=== PATIENT | male | born 1985 | race Hispanic/Latino ===

== ENCOUNTER 2020-05-20 20:35 | Emergency (ER) | payer BC, SELFPAY ==
--- NOTE | 2020-05-20 20:42 | DI.RAD.S_ITS ---
PROCEDURE: XR CHEST 1V INDICATIONS: chest pain TECHNIQUE: One view of the chest was acquired. COMPARISON: None. FINDINGS: Surgical changes and devices: None. Lungs and pleura: Lungs are clear. No pleural effusions or pneumothorax. Mediastinum: Mediastinal contours appear normal. Heart size is normal. Bones and chest wall: No suspicious bony lesions. Overlying soft tissues appear unremarkable. IMPRESSION: No acute cardiopulmonary findings. Dictated by: Marlen Tinoco M.D. on 05/20/2020 at 21:18 Approved by: Marlen Tinoco M.D. on 05/20/2020 at 21:18
[2020-05-20 20:43] VITALS: BP 173/102; PULSE 110; RESP 18; TEMP 37; O2SAT 97; BMI 34.7
[2020-05-20 21:20] LABS: Add Manual Diff / Slide Review NO; Basophils Absolute Auto 100 /uL (0-100); Eosinophils Absolute Auto 200 /uL (0-450); Eosinophils Percent Auto 2.5 % (2-4); Hematocrit 44.7 % (41-53); Hemoglobin 15.7 g/dL (13.5-17.5); Lymphocytes Absolute Auto 3100 /uL (1100-4500); Lymphocytes Percent Auto 32.2 % (25-40); Mean Corpuscular HGB Conc 35.1 % (30-36); Mean Corpuscular Volume 88.4 fL (80-100); Monocytes Absolute Auto 800 /uL (0-900); Monocytes Percent Auto 8.3 % (3-14); Neutrophils Absolute Auto 5400 /uL (1500-7000); Platelet Count 219 X10^3/uL (150-400); Red Blood Cell Count 5.06 X10^6/uL (4.5-5.9); Red Cell Distribution Width 12.4 % (11.6-14.8); White Blood Cell Count 9.7 X10^3/uL (4.5-11.0)
[2020-05-20 21:24] LABS: Prothrombin Time 11.1 SECONDS (10.1-12.7)
[2020-05-20 21:27] LABS: PTT Partial Thromboplastin Tim 30 SECONDS (26.4-36.2)
[2020-05-20 21:32] LABS: Alanine Aminotransferase 200 IU/L (<50); Albumin 4.1 g/dL (3.5-5.0); Albumin Globulin Ratio 1.1 (1.0-2.8); Alkaline Phosphatase 136 U/L (38-126); Aspartate Aminotransferase 152 IU/L (17-59); BUN Creatinine Ratio 22.1 (6-22); Bilirubin Total 1.1 mg/dL (0.2-1.3); Blood Urea Nitrogen 17 mg/dL (9-20); Calcium 9.2 mg/dL (8.4-10.2); Carbon Dioxide 29 mmol/L (22-32); Chloride 102 mmol/L (98-107); Creatine Kinase 981 U/L (55-170); Estimated Glomerular Filt Rate > 60.0 mL/min (>60); Globulin 3.9 g/dL (1.7-4.1); Glucose 165 mg/dL (70-100); HEMOLYSIS 34 (0-50); Lipase 117 U/L (23-300); Potassium 3.7 mmol/L (3.4-5.1); Sodium 134 mmol/L (137-145)
[2020-05-20 21:43] LABS: Troponin I < 0.012 ng/mL (0.01-0.034)
--- NOTE | 2020-05-20 21:45 | ED_ITS ---
HPI - Chest Pain General Chief Complaint: Chest Pain Stated Complaint: chest pain Time Seen by Provider: 05/20/20 20:48 Source: patient Mode of arrival: Family Vehicle Limitations: no limitations History of Present Illness HPI narrative: 34 male former smoker with no medical history presents with a chief complaint of episodes of mid chest pain off and on over the past few weeks with radiation to his back. He states on multiple occasions it seemed to be related to eating, he is also provoked by laying flat. The pain is achy in nature and has been off and on for the past few weeks. He denies associated symptoms such as dizziness, weakness or lightheadedness. He denies nausea, vomiting or diarrhea. He denies any fever or chills. He denies any change in his symptoms with exertion. MD complaint: chest pain Onset (ago): week(s) Duration: intermittent Onset: after eating Pain location: epigastric Severity: moderate Quality: aching Pain radiation: back Exacerbating factors: eating and supine Treatments prior to arrival chest pain: none Related Data Home Medications Medication Instructions Recorded Confirmed No Known Home Medications 05/20/20 05/20/20 Allergies Allergy/AdvReac Type Severity Reaction Status Date / Time No Known Drug Allergies Allergy Verified 05/20/20 20:48 Review of Systems Constitutional Constitutional: Denies chills, Denies fatigue, Denies fever(s), Denies frequent falls, Denies lethargy and Denies weakness Eyes Eyes: Denies change in vision, Denies eye discharge, Denies irritation and Denies loss of vision ENT Ears, Nose, Mouth, and Throat: Denies change in voice, Denies dizziness, Denies neck pain, Denies sore throat and Denies throat swelling Cardiovascular Cardiovascular: Reports chest pain, Denies irregular heart rhythm, Denies lightheadedness, Denies palpitations, Denies dyspnea, Denies dyspnea on exertion and Denies orthopnea Respiratory Respiratory: Denies cough, Denies dyspnea, Denies dyspnea on exertion and Denies wheezing Gastrointestinal Gastrointestinal: Reports abdominal pain, Denies change in bowel habits, Denies diarrhea, Denies nausea and Denies vomiting Musculoskeletal Musculoskeletal: Denies neck pain and Denies numbness Integumentary/Breasts Skin/Breast: Denies pruritus, Denies erythema, Denies rash and Denies wounds Neurologic Neurologic: Denies behavioral changes, Denies confusion, Denies dizziness, Denies frequent falls, Denies loss of vision, Denies numbness and Denies weakness Psychiatric Psychiatric: Denies anxiety, Denies behavioral changes, Denies confusion, Denies depression, Denies homicidal ideation and Denies suicidal ideation Endocrine Endocrine: Denies fatigue, Denies flushing and Denies palpitations Hematologic/Lymphatic Hematologic/Lymphatic: Denies easy bruising Allergic/Immunologic Allergic/Immunologic: Denies urticaria, Denies throat swelling and Denies wheezing Patient History Social History Smoking Status: Former smoker Smoking Status: Former smoker alcohol intake frequency: 3 or more drinks per day Alcohol type: beer and hard liquor Substance Use Type: does not use Exam Narrative Exam Narrative: GENERAL: [34] year old patient appears stated age. Well- nourished, well-developed patient, in mild distress. HEAD: Atraumatic. Normocephalic. EYES: Pupils equal round and reactive. Extraocular motions intact. No scleral icterus. No injection or drainage. ENT: Nose without bleeding, purulent drainage. Throat without erythema, tonsillar hypertrophy or exudate. Airway patent. NECK: Trachea midline. Non tender CARDIOVASCULAR: Regular rate and rhythm without murmurs, gallops, or rubs. RESPIRATORY: Clear to auscultation. Breath sounds equal bilaterally. No wheezes, rales, or rhonchi. GASTROINTESTINAL: Abdomen soft, non-tender, nondistended. EXTREMITIES: No edema or joint tenderness. BACK: Nontender without deformity or crepitance. No flank tenderness. NEURO: AOx3. SKIN: No rash or erythema of visible areas Initial Vital Signs Initial Vital Signs: Vital Signs Temperature 98.6 F 05/20/20 20:43 Pulse Rate 110 H 05/20/20 20:43 Respiratory Rate 18 05/20/20 20:43 Blood Pressure 173/102 H 05/20/20 20:43 Pulse Oximetry 97 05/20/20 20:43 Course Orders Ordered: ED Orders 05/20/20 21:53 US abdomen limited Stat Vital Signs Vital signs: Vital Signs - 8 hr 05/20/20 23:00 05/20/20 23:30 05/21/20 00:05 Pulse Rate 87 85 88 Respiratory Rate 13 15 18 Blood Pressure 119/81 120/73 120/73 Pulse Oximetry 95 94 97 MDM - Chest Pain Lab Data Result diagrams: 05/20/20 21:11 05/20/20 21:11 Labs: Lab Results 05/20/20 05/20/20 05/20/20 Range/Units 21:11 21:11 21:11 WBC 9.7 (4.5-11.0) X10^3/uL RBC 5.06 (4.5-5.9) X10^6/uL Hgb 15.7 (13.5-17.5) g/dL Hct 44.7 (41-53) % MCV 88.4 (80-100) fL MCH 31.0 (26-34) PG MCHC 35.1 (30-36) % RDW 12.4 (11.6-14.8) % Plt Count 219 (150-400) X10^3/uL Neut % (Auto) 56.0 (50-75) % Lymph % (Auto) 32.2 (25-40) % [place] % (Auto) 8.3 (3-14) % Eos % (Auto) 2.5 (2-4) % Baso % (Auto) 1.0 (0-2) % Neut # (Auto) 5400 (0951-2340) /uL Lymph # (Auto) 3100 (3343-9491) /uL [place] # (Auto) 800 (0-900) /uL Eos # (Auto) 200 (0-450) /uL Baso # (Auto) 100 (0-100) /uL PT 11.1 (10.1-12.7) SECONDS INR 1.0 (0.9-1.3) APTT 30 (26.4-36.2) SECONDS D-Dimer (<230) ng/mL Sodium 134 L (137-145) mmol/L Potassium 3.7 (3.4-5.1) mmol/L Chloride 102 (98-107) mmol/L Carbon Dioxide 29 (22-32) mmol/L BUN 17 (9-20) mg/dL Creatinine 0.77 (0.66-1.25) mg/dL Estimated GFR > 60.0 (>60) mL/min BUN/Creatinine Ratio 22.1 H (6-22) Glucose 165 H (70-100) mg/dL Calcium 9.2 (8.4-10.2) mg/dL Total Bilirubin 1.1 (0.2-1.3) mg/dL AST 152 H (17-59) IU/L ALT 200 H (<50) IU/L Alkaline Phosphatase 136 H (38-126) U/L Total Creatine Kinase 981 H (55-170) U/L CK-MB (CK-2) 3.46 H (<2.37) ng/mL CK-MB (CK-2) Rel Index 0.4 L (1.5-5.0) % Troponin I < 0.012 (0.01-0.034) ng/mL Total Protein 8.0 (6.3-8.2) g/dL Albumin 4.1 (3.5-5.0) g/dL Globulin 3.9 (1.7-4.1) g/dL Albumin/Globulin Ratio 1.1 (1.0-2.8) Lipase 117 (23-300) U/L 12/21/20 Range/Units 21:11 WBC (4.5-11.0) X10^3/uL RBC (4.5-5.9) X10^6/uL Hgb (13.5-17.5) g/dL Hct (41-53) % MCV (80-100) fL MCH (26-34) PG MCHC (30-36) % RDW (11.6-14.8) % Plt Count (150-400) X10^3/uL Neut % (Auto) (50-75) % Lymph % (Auto) (25-40) % [place] % (Auto) (3-14) % Eos % (Auto) (2-4) % Baso % (Auto) (0-2) % Neut # (Auto) (7457-9140) /uL Lymph # (Auto) (7642-3288) /uL [place] # (Auto) (0-900) /uL Eos # (Auto) (0-450) /uL Baso # (Auto) (0-100) /uL PT (10.1-12.7) SECONDS INR (0.9-1.3) APTT (26.4-36.2) SECONDS D-Dimer < 200 (<230) ng/mL Sodium (137-145) mmol/L Potassium (3.4-5.1) mmol/L Chloride (98-107) mmol/L Carbon Dioxide (22-32) mmol/L BUN (9-20) mg/dL Creatinine (0.66-1.25) mg/dL Estimated GFR (>60) mL/min BUN/Creatinine Ratio (6-22) Glucose (70-100) mg/dL Calcium (8.4-10.2) mg/dL Total Bilirubin (0.2-1.3) mg/dL AST (17-59) IU/L ALT (<50) IU/L Alkaline Phosphatase (38-126) U/L Total Creatine Kinase (55-170) U/L CK-MB (CK-2) (<2.37) ng/mL CK-MB (CK-2) Rel Index (1.5-5.0) % Troponin I (0.01-0.034) ng/mL Total Protein (6.3-8.2) g/dL Albumin (3.5-5.0) g/dL Globulin (1.7-4.1) g/dL Albumin/Globulin Ratio (1.0-2.8) Lipase (23-300) U/L Imaging Data US - abdomen: Radiologist's Impression: No gallstones, gallbladder thickening or pericholecystic fluid MDM Narrative Medical decision making narrative: Multiple causes of chest pain considered including NM, PE, pneumothorax, pneumonia, aortic dissection, and pleurisy. Patient reports no radiation, no diaphoresis, no provocation with exertion, and no vomiting Patient's symptoms improved over duration of stay with above-stated therapies. Findings and discharge diagnosis discussed with patient/family followed by verbalization of understanding Return precautions discussed with patient/family whom verbalize understanding. Discharge Plan Departure Patient Disposition: Home Clinical Impression: Atypical chest pain Instructions: DI for Atypical Chest Pain Activity Restrictions/Additional Instructions: *You have been diagnosed with [atypical chest pain. EKG, labs and exam would suggest this is not classic cardiac disease. Furthermore, the ultrasound of your gallbladder was also reassuring.] *What to do: *Avoid fatty foods, spicy foods, alcohol, nicotine, and significant caffeine *Follow up with your primary care provider in 2-3 days, call for an appointment. Let them know you were seen in the Emergency Department and that we ask that you be seen in follow up *Return to ER if you should have any new, worsening or concerning symptoms Prescriptions: No Action No Known Home Medications RF: 0 Referrals: [facility] [Outside]
[2020-05-20 21:47] LABS: CKMB % Relative Index 0.4 % (1.5-5.0); Creatine Kinase MB 3.46 ng/mL (<2.37)
--- NOTE | 2020-05-20 21:53 | DI.US.S_ITS ---
PROCEDURE: US ABDOMEN LIMITED INDICATIONS: RIGHT UPPER QUADRANT PAIN TECHNIQUE: Real-time focused scanning was performed of the abdomen, with image documentation. COMPARISON: None. FINDINGS: Liver is normal in size. Liver is diffusely echogenic. No focal hepatic mass lesions. Gallbladder is contracted which limits diagnostic sensitivity this study. Gallbladder wall is thickened to 6.2 millimeters which could be due to contraction or inflammation. No definite gallstones identified, however gallstones cannot be excluded due to gallbladder contraction. No pericholecystic fluid. No sonographic Bahena sign. The biliary tree is nondilated. Common bile duct measures 3.4 millimeters. IMPRESSION: 1. Gallbladder contracted which limits diagnostic sensitivity of the study. No definite evidence of cholelithiasis or cholecystitis, however gallbladder disease is not excluded by this study. If there is continued clinical concern for cholecystitis, a nuclear medicine HIDA scan should be considered for further evaluation. 2. Echogenic liver. Finding typically represents fatty infiltration; however, finding is nonspecific and correlation with clinical and laboratory findings is recommended to exclude other etiologies including hepatic cirrhosis. Dictated by: Pamela Rodriguez MD, PhD on 05/21/2020 at 7:38 Approved by: Pamela Rodriguez MD, PhD on 05/21/2020 at 7:40
[2020-05-20 21:54] VITALS: PULSE 89; RESP 14; O2SAT 97
[2020-05-20 21:56] LABS: D Dimer < 200 ng/mL (<230)
[2020-05-20 22:00] VITALS: BP 117/66; PULSE 86; RESP 12; O2SAT 96
[2020-05-20 22:30] VITALS: BP 120/68; PULSE 91; RESP 18; O2SAT 96
[2020-05-20 23:00] VITALS: BP 119/81; PULSE 87; RESP 13; O2SAT 95
[2020-05-20 23:30] VITALS: BP 120/73; PULSE 85; RESP 15; O2SAT 94
[2020-05-21 00:05] VITALS: BP 120/73; PULSE 88; RESP 18; O2SAT 97
== END 2020-05-21 00:07 | disposition home or self-care (01) ==
PROVIDERS: Emergency Provider Emergency Medicine
DX: R07.89 Other chest pain (principal); R10.11 Right upper quadrant pain
CPT/HCPCS: 36415; 71045; 76705; 80053; 82550; 82553; 83690; 84484; 85025; 85379; 85610; 85730; 93005; 99284

== ENCOUNTER 2020-11-17 08:34 | Inpatient (IN) | payer OTHER, SELFPAY ==
[2020-11-17 08:58] VITALS: BP 153/97; PULSE 125; RESP 16; TEMP 37.3; O2SAT 99; BMI 33.0
--- NOTE | 2020-11-17 09:31 | ED_ITS ---
HPI - Abdominal Pain General Chief Complaint: Abdominal Pain Stated Complaint: SEVERE ABD PAIN Time Seen by Provider: 11/17/20 09:27 Source: patient Mode of arrival: Ambulatory Limitations: no limitations History of Present Illness HPI narrative: This is a 35-year-old male comes emergency department with complaint of left-sided abdominal pain that started last night. Patient states it radiates up towards the left side of his chest. No fevers or chills. No nausea or vomiting. Denies any shortness of breath. Patient states pain is worse with movement. He denies any urinary symptoms. No frequency, discharge or difficulty with urination. Patient states he has not had a bowel movement about 24 hours. He states he is only passing a small amount of gas. He states he takes medication for anxiety but denies any other regular medications. No prior surgeries. Patient denies any allergies to medication. Positive for tobacco. Patient drinks approximately 12 alcoholic drinks nightly. No illicit. He states pain has been fairly constant. It has not resolved. He had difficulty sleeping which is why he Related Data Previous Rx's Medication Instructions Recorded hydroxyzine HCl 25 mg tablet 25 mg PO TID PRN #30 tab 06/12/20 Allergies Allergy/AdvReac Type Severity Reaction Status Date / Time No Known Drug Allergies Allergy Verified 06/12/20 15:42 Patient History Medical History (Updated 11/17/20 @ 15:21 by Dante Betancourt MD) Alcoholic hepatitis Alcoholism Anxiety Nonalcoholic fatty liver disease Surgical History (Updated 11/17/20 @ 17:02 by Dante Betancourt MD) No significant past surgical history Family History (Updated 11/17/20 @ 15:22 by Dante Betancourt MD) Mother CVA (cerebral vascular accident) Social History Smoking Status: Former smoker alcohol intake: current Smoking Status: Former smoker alcohol intake frequency: 3 or more drinks per day Alcohol type: beer and hard liquor Substance Use Type: does not use Exam Narrative Exam Narrative: GENERAL: Alert and oriented x three, obese male in moderate distress. Patient is not diaphoretic. HEENT: Head normocephalic, atraumatic, EOMI, pupils reactive, face symmetric, moist mucous membranes NECK: Supple, full range of motion CARDIOVASCULAR: Regular rate and rhythm without murmurs, rubs or gallops. RESPIRATORY: Breath sounds equal bilaterally, no wheezes rales or rhonchi. ABDOMEN: Soft, left upper quadrant epigastric tenderness. Normoactive bowel sounds all 4 quadrants. No guarding or rebound, rigidity, no mass, no bruit or pulsatile mass. : No CVA tenderness BACK: No cervical, thoracic or lumbar vertebral point tenderness. Patient has normal range of motion. EXTREMITIES: Normal range of motion, no clubbing or edema. Neurovascularly intact NEUROLOGICAL: Cranial nerves II through XII grossly intact. Moving all extremities SKIN: Warm, dry, no petechiae, no rashes or lesions. Initial Vital Signs Initial Vital Signs: Vital Signs Temperature 99.1 F 11/17/20 08:58 Pulse Rate 125 H 11/17/20 08:58 Respiratory Rate 16 11/17/20 08:58 Blood Pressure 153/97 H 11/17/20 08:58 Pulse Oximetry 99 11/17/20 08:58 Course Orders Ordered: ED Orders 11/17/20 11:17 Urine Microscopic Stat Dextrose (Dextrose 50 % In Water 25 Gm/50 Ml Syringe) 25 gm IV PRN PRN PRN Reason: Hypoglycemia Enoxaparin Sodium (Enoxaparin 40 Mg/0.4 Ml Syringe) 40 mg SUBCUT DAILY LOUIE Famotidine (Famotidine 20 Mg/2 Ml Vial) 20 mg IV BID LOUIE Hydromorphone HCl (Hydromorphone 1 Mg Inj) 1 mg IV Q3H PRN PRN Reason: Pain, Severe (7-10) Last Admin: 11/17/20 13:55 Dose: 1 mg Documented by: MARYELLEN Hydromorphone HCl (Hydromorphone 0.5 Mg Inj) 0.5 mg IV Q3H PRN PRN Reason: Pain, Moderate (4-6) Last Admin: 11/17/20 18:24 Dose: 0.5 mg Documented by: OC Dextrose/Sodium Chloride (Dextrose 5%-0.9% Ns) 1,000 mls @ 130 mls/hr IV CONT LOUIE Last Admin: 11/17/20 13:55 Dose: 130 mls/hr Documented by: MARYELLEN Insulin Human Lispro (Insulin Lispro 100 Unit/Ml 3ml Vial) 0 unit SUBCUT ACHS LOUIE; Protocol Lorazepam (Lorazepam 2 Mg/Ml Inj) 0.5 mg IV Q2HR PRN PRN Reason: Anxiety Naloxone HCl (Naloxone 0.4 Mg/Ml Vial) 0.2 mg IV Q2MIN PRN PRN Reason: Opiate Reversal Ondansetron HCl (Ondansetron 4 Mg/2 Ml Inj) 4 mg IV Q8HR PRN PRN Reason: Nausea And Vomiting Discontinued Medications Sodium Chloride (Normal Saline 0.9%) 1,000 mls @ 1,000 mls/hr IV BOLUS ONE Stop: 11/17/20 10:39 Last Infusion: 11/17/20 11:18 Dose: 0 mls/hr Documented by: Admin: 11/17/20 10:12 Dose: 1,000 mls/hr Documented by: CTRGLORIA Ketorolac Tromethamine (Ketorolac 30 Mg/Ml Vial) 15 mg IV NOW ONE Stop: 11/17/20 09:41 Last Admin: 11/17/20 10:12 Dose: 15 mg Documented by: DENISE Reevaluation(s) Reevaluation #1: Patient feeling better after pain meds. Cholesterol panel pending. Time: 10:59 Consultations Consultation #1: Dr. Betancourt accepts for admission. Time: 11:05 Vital Signs Vital signs: Vital Signs - 8 hr 11/17/20 08:58 Temperature 99.1 F Pulse Rate 125 H Respiratory Rate 16 Blood Pressure 153/97 H Pulse Oximetry 99 MDM - Abdominal Pain Lab Data Attestation: I reviewed the patient's lab results. Result diagrams: 11/17/20 09:50 11/17/20 09:50 Labs: Lab Results 11/17/20 11/17/20 11/17/20 Range/Units 09:50 09:50 09:50 WBC 13.0 H (4.5-11.0) X10^3/uL RBC 5.56 (4.5-5.9) X10^6/uL Hgb 17.0 (13.5-17.5) g/dL Hct 49.6 (41-53) % MCV 89.2 (80-100) fL MCH 30.5 (26-34) PG MCHC 34.2 (30-36) % RDW 13.1 (11.6-14.8) % Plt Count 229 (150-400) X10^3/uL Neut % (Auto) 78.6 H (50-75) % Lymph % (Auto) 11.5 L (25-40) % [place] % (Auto) 9.3 (3-14) % Eos % (Auto) 0.1 L (2-4) % Baso % (Auto) 0.5 (0-2) % Neut # (Auto) 30589 H (8152-4480) /uL Lymph # (Auto) 1500 (0196-8014) /uL [place] # (Auto) 1200 H (0-900) /uL Eos # (Auto) 0 (0-450) /uL Baso # (Auto) 100 (0-100) /uL Sodium 133 L (137-145) mmol/L Potassium 4.5 (3.4-5.1) mmol/L Chloride 97 L (98-107) mmol/L Carbon Dioxide 14 L (22-32) mmol/L BUN 10 (9-20) mg/dL Creatinine 0.73 (0.66-1.25) mg/dL Estimated GFR > 60.0 (>60) mL/min BUN/Creatinine Ratio 13.7 (6-22) Glucose 342 H (70-100) mg/dL Lactate (0.7-2.1) mmol/L Calcium 8.7 (8.4-10.2) mg/dL Total Bilirubin 2.7 H (0.2-1.3) mg/dL AST 78 H (17-59) IU/L ALT 193 H (<50) IU/L Alkaline Phosphatase 148 H (38-126) U/L Total Creatine Kinase 391 H (55-170) U/L CK-MB (CK-2) 0.97 (<2.37) ng/mL CK-MB (CK-2) Rel Index 0.2 L (1.5-5.0) % Troponin I 0.017 (0.01-0.034) ng/mL Total Protein 9.8 H* (6.3-8.2) g/dL Albumin 4.7 (3.5-5.0) g/dL Globulin 5.1 H (1.7-4.1) g/dL Albumin/Globulin Ratio 0.9 L (1.0-2.8) Triglycerides (35-150) mg/dL Cholesterol (140-199) mg/dL LDL Cholesterol, Calc HDL Cholesterol (40-60) mg/dL Lipase 1618 H (23-300) U/L Urine RBC (0-5/HPF) Urine WBC (0-5/HPF) Ur Squamous Epith Cells (0-5/HPF) Urine Bacteria (None) Ur Culture Indicated? Ethyl Alcohol ( - 10) mg/dL SARS-CoV-2 (PCR) (Negative) 11/17/20 11/17/20 11/17/20 Range/Units 09:50 09:50 09:50 WBC (4.5-11.0) X10^3/uL RBC (4.5-5.9) X10^6/uL Hgb (13.5-17.5) g/dL Hct (41-53) % MCV (80-100) fL MCH (26-34) PG MCHC (30-36) % RDW (11.6-14.8) % Plt Count (150-400) X10^3/uL Neut % (Auto) (50-75) % Lymph % (Auto) (25-40) % [place] % (Auto) (3-14) % Eos % (Auto) (2-4) % Baso % (Auto) (0-2) % Neut # (Auto) (8902-4329) /uL Lymph # (Auto) (4669-7745) /uL [place] # (Auto) (0-900) /uL Eos # (Auto) (0-450) /uL Baso # (Auto) (0-100) /uL Sodium (137-145) mmol/L Potassium (3.4-5.1) mmol/L Chloride (98-107) mmol/L Carbon Dioxide (22-32) mmol/L BUN (9-20) mg/dL Creatinine (0.66-1.25) mg/dL Estimated GFR (>60) mL/min BUN/Creatinine Ratio (6-22) Glucose (70-100) mg/dL Lactate 1.6 (0.7-2.1) mmol/L Calcium (8.4-10.2) mg/dL Total Bilirubin (0.2-1.3) mg/dL AST (17-59) IU/L ALT (<50) IU/L Alkaline Phosphatase (38-126) U/L Total Creatine Kinase (55-170) U/L CK-MB (CK-2) (<2.37) ng/mL CK-MB (CK-2) Rel Index (1.5-5.0) % Troponin I (0.01-0.034) ng/mL Total Protein (6.3-8.2) g/dL Albumin (3.5-5.0) g/dL Globulin (1.7-4.1) g/dL Albumin/Globulin Ratio (1.0-2.8) Triglycerides 3772 H (35-150) mg/dL Cholesterol 552 H (140-199) mg/dL LDL Cholesterol, Calc TNP HDL Cholesterol 32 L (40-60) mg/dL Lipase (23-300) U/L Urine RBC (0-5/HPF) Urine WBC (0-5/HPF) Ur Squamous Epith Cells (0-5/HPF) Urine Bacteria (None) Ur Culture Indicated? Ethyl Alcohol < 10 ( - 10) mg/dL SARS-CoV-2 (PCR) (Negative) 11/17/20 11/17/20 Range/Units 10:30 11:17 WBC (4.5-11.0) X10^3/uL RBC (4.5-5.9) X10^6/uL Hgb (13.5-17.5) g/dL Hct (41-53) % MCV (80-100) fL MCH (26-34) PG MCHC (30-36) % RDW (11.6-14.8) % Plt Count (150-400) X10^3/uL Neut % (Auto) (50-75) % Lymph % (Auto) (25-40) % [place] % (Auto) (3-14) % Eos % (Auto) (2-4) % Baso % (Auto) (0-2) % Neut # (Auto) (9634-9819) /uL Lymph # (Auto) (5270-9302) /uL [place] # (Auto) (0-900) /uL Eos # (Auto) (0-450) /uL Baso # (Auto) (0-100) /uL Sodium (137-145) mmol/L Potassium (3.4-5.1) mmol/L Chloride (98-107) mmol/L Carbon Dioxide (22-32) mmol/L BUN (9-20) mg/dL Creatinine (0.66-1.25) mg/dL Estimated GFR (>60) mL/min BUN/Creatinine Ratio (6-22) Glucose (70-100) mg/dL Lactate (0.7-2.1) mmol/L Calcium (8.4-10.2) mg/dL Total Bilirubin (0.2-1.3) mg/dL AST (17-59) IU/L ALT (<50) IU/L Alkaline Phosphatase (38-126) U/L Total Creatine Kinase (55-170) U/L CK-MB (CK-2) (<2.37) ng/mL CK-MB (CK-2) Rel Index (1.5-5.0) % Troponin I (0.01-0.034) ng/mL Total Protein (6.3-8.2) g/dL Albumin (3.5-5.0) g/dL Globulin (1.7-4.1) g/dL Albumin/Globulin Ratio (1.0-2.8) Triglycerides (35-150) mg/dL Cholesterol (140-199) mg/dL LDL Cholesterol, Calc HDL Cholesterol (40-60) mg/dL Lipase (23-300) U/L Urine RBC None seen (0-5/HPF) Urine WBC None seen (0-5/HPF) Ur Squamous Epith Cells 0-1 /hpf (0-5/HPF) Urine Bacteria None seen (None) Ur Culture Indicated? Cult not indicated Ethyl Alcohol ( - 10) mg/dL SARS-CoV-2 (PCR) Negative (Negative) Point of care testing: Urine Dip Bedside Urine Glucose 500 mg/dl Bedside Urine Bilirubin - Negative Bedside Urine Ketone +++ 80 Urine Specific [place] 1.015 Bedside Urine Occult Blood - Negative Bedside Urine pH 6.0 Bedside Urine Protein - Negative Bedside Urine Urobilinogen - Negative Bedside Urine Nitrite - Negative Bedside Urine Leukocytes - Negative Esterase Imaging Data CT scan - abdomen/pelvis: Radiologist's Impression: [address] [id number] Scan ReportSigned Patient: Jimy Skinner [facility]#: [id number]: 1985Acct:[id number]/Sex: 35 / MDate of Service: 11/17/20Loc: EDAccession Number: [id number] Procedure: CT abdomen pelvis w con Ordering Provider: Laurita Oreilly D.O. PROCEDURE: CT ABDOMEN PELVIS W CON INDICATIONS: left sided abd pain, hx etoh TECHNIQUE: After the administration of intravenous contrast, axial sections acquired from the lung bases to the pubic symphysis. Coronal and sagittal reformats were performed. For radiation dose reduction, the following was used: automated exposure control, adjustment of mA and/or kV according to patient size. COMPARISON: None. FINDINGS: Image quality: Excellent. Lung bases: Unremarkable. Heart: No significant findings. ABDOMEN: Liver: At least moderate diffuse hepatic steatosis. Mild hepatomegaly. The liver measures 21 cm in length. Gallbladder: Unremarkable. Biliary ducts: Unremarkable. Pancreas: Mild edematous change in the pancreas with extensive peripancreatic fluid. Fluid extends down the left pericolic gutter. No pancreatic necrosis. No free air or abscess cavity. Spleen: Unremarkable. Adrenal Glands: Unremarkable. Kidneys and Ureters: Unremarkable. Stomach and Bowel: Stomach, small bowel loops, and colon are unremarkable. Peritoneum: No abnormal intraperitoneal fluid. No free air. Ventral Wall: No hernias. Abdominal Nodes: No retroperitoneal or mesenteric adenopathy by size criteria. Vessels: Aorta and inferior vena cava are normal in size. PELVIS: Pelvic Organs: Unremarkable. Bladder: Unremarkable. Pelvic Nodes: No enlarged lymph nodes. Miscellaneous: Small fat containing left inguinal hernia. Bones: Unremarkable. IMPRESSION: 1. Acute pancreatitis with no evidence of pancreatic necrosis or abscess. 2. Hepatomegaly, hepatic steatosis. Dictated by: Jose Harley M.D. on 11/17/2020 at 9:40 Approved by: Jose Harley M.D. on 11/17/2020 at 9:43 ECG Data Attestation: I personally reviewed and interpreted this ECG as follows: Prior ECG tracings: available for review Interpretation: Sinus tach rate of 117 P are 186 QRS of 98 QTC of 429. No acute ST elevation depression noted. Patient has prior from 05/20/2020 which appears similar. MDM Narrative Medical decision making narrative: 35-year-old male with acute onset abdominal p ain which appears to have pancreatitis in the setting of a history of alcohol abuse. Lab noted that his blood seems lipemic and cholesterol panel was added on. Patient's triglycerides are size significantly elevated. CT abdomen shows pancreatitis but no abscess or necrotic changes. By Dr. Betancourt for admission. Discharge Plan Departure Patient Disposition: Admitted As Inpatient Clinical Impression: Acute pancreatitis, ETOH abuse, Hyperlipemia Admit Date/Time: 11/17/20 11:48 Admit Provider: Dante Betancourt
--- NOTE | 2020-11-17 09:40 | DI.CT.S_ITS ---
PROCEDURE: CT ABDOMEN PELVIS W CON INDICATIONS: left sided abd pain, hx etoh TECHNIQUE: After the administration of intravenous contrast, axial sections acquired from the lung bases to the pubic symphysis. Coronal and sagittal reformats were performed. For radiation dose reduction, the following was used: automated exposure control, adjustment of mA and/or kV according to patient size. COMPARISON: None. FINDINGS: Image quality: Excellent. Lung bases: Unremarkable. Heart: No significant findings. ABDOMEN: Liver: At least moderate diffuse hepatic steatosis. Mild hepatomegaly. The liver measures 21 cm in length. Gallbladder: Unremarkable. Biliary ducts: Unremarkable. Pancreas: Mild edematous change in the pancreas with extensive peripancreatic fluid. Fluid extends down the left pericolic gutter. No pancreatic necrosis. No free air or abscess cavity. Spleen: Unremarkable. Adrenal Glands: Unremarkable. Kidneys and Ureters: Unremarkable. Stomach and Bowel: Stomach, small bowel loops, and colon are unremarkable. Peritoneum: No abnormal intraperitoneal fluid. No free air. Ventral Wall: No hernias. Abdominal Nodes: No retroperitoneal or mesenteric adenopathy by size criteria. Vessels: Aorta and inferior vena cava are normal in size. PELVIS: Pelvic Organs: Unremarkable. Bladder: Unremarkable. Pelvic Nodes: No enlarged lymph nodes. Miscellaneous: Small fat containing left inguinal hernia. Bones: Unremarkable. IMPRESSION: 1. Acute pancreatitis with no evidence of pancreatic necrosis or abscess. 2. Hepatomegaly, hepatic steatosis. Dictated by: Jose Harley M.D. on 11/17/2020 at 9:40 Approved by: Jose Harley M.D. on 11/17/2020 at 9:43
[2020-11-17 09:56] LABS: Add Manual Diff / Slide Review NO; Basophils Absolute Auto 100 /uL (0-100); Basophils Percent Auto 0.5 % (0-2); Eosinophils Absolute Auto 0 /uL (0-450); Eosinophils Percent Auto 0.1 % (2-4); Hematocrit 49.6 % (41-53); Lymphocytes Absolute Auto 1500 /uL (1100-4500); Lymphocytes Percent Auto 11.5 % (25-40); Mean Corpuscular HGB Conc 34.2 % (30-36); Mean Corpuscular Hemoglobin 30.5 PG (26-34); Mean Corpuscular Volume 89.2 fL (80-100); Monocytes Absolute Auto 1200 /uL (0-900); Monocytes Percent Auto 9.3 % (3-14); Neutrophils Absolute Auto 10200 /uL (1500-7000); Neutrophils Percent Auto 78.6 % (50-75); Platelet Count 229 X10^3/uL (150-400); Red Blood Cell Count 5.56 X10^6/uL (4.5-5.9); Red Cell Distribution Width 13.1 % (11.6-14.8)
[2020-11-17 10:08] LABS: Lactate (Lactic Acid) 1.6 mmol/L (0.7-2.1)
[2020-11-17 10:10] LABS: Alanine Aminotransferase 193 IU/L (<50); Albumin 4.7 g/dL (3.5-5.0); Albumin Globulin Ratio 0.9 (1.0-2.8); Alkaline Phosphatase 148 U/L (38-126); Aspartate Aminotransferase 78 IU/L (17-59); BUN Creatinine Ratio 13.7 (6-22); Bilirubin Total 2.7 mg/dL (0.2-1.3); Blood Urea Nitrogen 10 mg/dL (9-20); Calcium 8.7 mg/dL (8.4-10.2); Carbon Dioxide 14 mmol/L (22-32); Chloride 97 mmol/L (98-107); Creatine Kinase 391 U/L (55-170); Estimated Glomerular Filt Rate > 60.0 mL/min (>60); Globulin 5.1 g/dL (1.7-4.1); Glucose 342 mg/dL (70-100); Lipase 1618 U/L (23-300); Potassium 4.5 mmol/L (3.4-5.1); Sodium 133 mmol/L (137-145)
[2020-11-17 10:11] LABS: HEMOLYSIS 179 (0-50)
[2020-11-17] MEDS: KETOROLAC 30 MG/ML VIAL 15 MG IV (10:12)
[2020-11-17] MEDS: SODIUM CHLORIDE 0.9% 1,000 ML 1000 ML IV (10:12)
[2020-11-17 10:14] LABS: Total Protein 9.8 g/dL (6.3-8.2)
[2020-11-17 10:21] LABS: Troponin I 0.017 ng/mL (0.01-0.034)
[2020-11-17 10:25] LABS: CKMB % Relative Index 0.2 % (1.5-5.0); Creatine Kinase MB 0.97 ng/mL (<2.37)
[2020-11-17 10:31] LABS: Ethanol (ETOH) < 10 mg/dL
[2020-11-17 10:46] LABS: Cholesterol 552 mg/dL (140-199)
[2020-11-17 11:02] LABS: Triglycerides 3772 mg/dL (35-150)
[2020-11-17 11:07] LABS: HDL Cholesterol 32 mg/dL (40-60)
[2020-11-17 11:22] VITALS: BP 153/97; PULSE 110; RESP 24; O2SAT 96
[2020-11-17 11:30] LABS: Bacteria Urine None Seen; RBC Urine None Seen (0-5/HPF); WBC Urine None Seen (0-5/HPF)
[2020-11-17 11:32] LABS: Culture Indicated Urine Cult Not Indicated; Squamous Epithelial Cell Urine 0-1 /HPF (0-5/HPF)
[2020-11-17 11:49] LABS: COVID19 - ADMIT (NP swab/PCR) Negative (Negative)
[2020-11-17 12:30] VITALS: BP 136/87; PULSE 117; RESP 19; TEMP 36.7; O2SAT 95
[2020-11-17 13:16] VITALS: BMI 33.1
[2020-11-17] MEDS: HYDROMORPHONE 1 MG INJ IV (13:55)
[2020-11-17] MEDS: DEXTROSE 5%-0.9% NS 1,000 ML 130 ML IV (13:55)
--- NOTE | 2020-11-17 14:37 | PC.NURSE ---
Admit Note Patient to room 225 from ER at 1130, walked self to bed without issue. Reports left sided abdominal pain 01/07. Administered Dilaudid 1mg per MD order. Denies any nausea. NPO. Seizure pads in place due to alcohol withdrawal risk (drinks anywhere from 12 to 18 drinks a day). Oriented to room and to call light/bed/tv controls. Call light within reach. Declines to lock up any valuables in the safe, cell phone x2, wallet, keys, and clothing all at bedside.
--- NOTE | 2020-11-17 15:17 | PM.HP.1 ---
History of Present Illness History of Present Illness Date Patient Seen: 11/17/20 Time Patient Seen: 15:17 Chief complaint: SEVERE ABD PAIN Narrative: This is a 35 year old male with chronic anxiety and alcoholism who presents with acute abdominal pain worsening in severity since noon yesterday. He admits to drinking 12 beers a day in what sounds like a bingeing type pattern. He has a full-time job as a manager lpn level employee but was recently ?celebrating his birthday. ? He was planning a alliance party with some friends but at noon yesterday his abdomen became painful diffusely. He tried some hydroxyzine, which put him to sleep, but then he kept waking up every 30 minutes last night with the severe pain. There was no nausea, vomiting or fevers. His last beer was 2 days ago. He has never had pancreatitis, diabetes mellitus, alcoholic hepatitis, alcohol withdrawal or hypertriglyceridemia before that he is aware of. The AST is 78 with an ALT of 193. The CK is 391 with a troponin of 0.017. The protein is high at 9.8. The lipase is 1618. The glucose is 342. The white blood count is 13.0 and the bilirubin is 2.7. His triglycerides are 3772 with a cholesterol level of 552. His abdominal CT shows hepatic steatosis, pancreatitis and hepatomegaly. Patient History Medical History (Updated 11/17/20 @ 15:21 by Dante Betancourt MD) Alcoholic hepatitis Alcoholism Anxiety Nonalcoholic fatty liver disease Surgical History (Updated 11/17/20 @ 17:02 by Dante Betancourt MD) No significant past surgical history Family & Social History Family History (Updated 11/17/20 @ 15:22 by Dante Betancourt MD) Mother CVA (cerebral vascular accident) Social History: Prior Living Arrangements House Safety & Behavioral: Feels Safe in Current Yes Environment Been Physically Hurt or No Threatened By a Person Suicidal Ideation Description None Tobacco & Substance use: Smoking Status Former smoker alcohol intake current alcohol intake frequency 3 or more drinks per day Substance Use Type does not use Meds Home Medications and Allergies Home Medications Medication Instructions Recorded Confirmed Type hydroxyzine HCl 25 mg tablet 25 mg PO TID PRN #30 tab 06/12/20 11/17/20 Rx Allergies Allergy/AdvReac Type Severity Reaction Status Date / Time No Known Drug Allergies Allergy Verified 06/12/20 15:42 Review of Systems Review of Systems Narrative: Positive for abdominal pain and insomnia Negative for nausea, vomiting, chest pain, shortness of breath, fevers, chills, sweats, cough, seizures, rash, dysuria, bleeding, headaches, difficulty talking, difficulty walking ROS: Yes All systems reviewed with the patient and are negative except as otherwise documented Exam Vital Signs (past 8 hours): - 11/17/20 08:58 11/17/20 11:22 11/17/20 12:30 Temperature 99.1 F 98.1 F Pulse Rate 125 H 110 H 117 H Respiratory Rate 16 24 19 Blood Pressure 153/97 H 153/97 H 136/87 Pulse Oximetry 99 96 95 Oxygen Delivery Method Room Air Narrative Exam Narrative: Alert and oriented x3, no apparent distress Pupils are equally round reactive to light and accommodation Extraocular muscles are intact Sclerae are pink nonicteric Throat looks normal No lymph nodes are felt head, neck, supraclavicular area JVD is less 6 cm No carotid bruits are heard There is no thyromegaly Heart is regular rate and rhythm without murmur Lungs are clear to auscultation bilaterally Abdomen is soft bowel sounds positive, tender in the left upper quadrant, no organomegaly. Nontender elsewhere Extremities have no ankle edema Skin has no rash or jaundice Neurological exam There is no tremor Cranial nerves 2-12 test intact Motor function is 5/5 throughout Deep tender reflexes are symmetric throughout Objective Labs Result Diagrams: 11/17/20 09:50 11/17/20 09:50 Labs: Laboratory Results - last 24 hr 11/17/20 11/17/20 11/17/20 09:50 09:50 09:50 WBC 13.0 H RBC 5.56 Hgb 17.0 Hct 49.6 MCV 89.2 MCH 30.5 MCHC 34.2 RDW 13.1 Plt Count 229 Neut % (Auto) 78.6 H Lymph % (Auto) 11.5 L Addison % (Auto) 9.3 Eos % (Auto) 0.1 L Baso % (Auto) 0.5 Neut # (Auto) 55870 H Lymph # (Auto) 1500 Addison # (Auto) 1200 H Eos # (Auto) 0 Baso # (Auto) 100 Sodium 133 L Potassium 4.5 Chloride 97 L Carbon Dioxide 14 L BUN 10 Creatinine 0.73 Estimated GFR > 60.0 BUN/Creatinine Ratio 13.7 Glucose 342 H Lactate Calcium 8.7 Total Bilirubin 2.7 H AST 78 H ALT 193 H Alkaline Phosphatase 148 H Total Creatine Kinase 391 H CK-MB (CK-2) 0.97 CK-MB (CK-2) Rel Index 0.2 L Troponin I 0.017 Total Protein 9.8 H* Albumin 4.7 Globulin 5.1 H Albumin/Globulin Ratio 0.9 L Triglycerides Cholesterol LDL Cholesterol, Calc HDL Cholesterol Lipase 1618 H Urine RBC Urine WBC Ur Squamous Epith Cells Urine Bacteria Ur Culture Indicated? Ethyl Alcohol SARS-CoV-2 (PCR) 11/17/20 11/17/20 11/17/20 09:50 09:50 09:50 WBC RBC Hgb Hct MCV MCH MCHC RDW Plt Count Neut % (Auto) Lymph % (Auto) Addison % (Auto) Eos % (Auto) Baso % (Auto) Neut # (Auto) Lymph # (Auto) Addison # (Auto) Eos # (Auto) Baso # (Auto) Sodium Potassium Chloride Carbon Dioxide BUN Creatinine Estimated GFR BUN/Creatinine Ratio Glucose Lactate 1.6 Calcium Total Bilirubin AST ALT Alkaline Phosphatase Total Creatine Kinase CK-MB (CK-2) CK-MB (CK-2) Rel Index Troponin I Total Protein Albumin Globulin Albumin/Globulin Ratio Triglycerides 3772 H Cholesterol 552 H LDL Cholesterol, Calc TNP HDL Cholesterol 32 L Lipase Urine RBC Urine WBC Ur Squamous Epith Cells Urine Bacteria Ur Culture Indicated? Ethyl Alcohol < 10 SARS-CoV-2 (PCR) 11/17/20 11/17/20 10:30 11:17 WBC RBC Hgb Hct MCV MCH MCHC RDW Plt Count Neut % (Auto) Lymph % (Auto) Addison % (Auto) Eos % (Auto) Baso % (Auto) Neut # (Auto) Lymph # (Auto) Addison # (Auto) Eos # (Auto) Baso # (Auto) Sodium Potassium Chloride Carbon Dioxide BUN Creatinine Estimated GFR BUN/Creatinine Ratio Glucose Lactate Calcium Total Bilirubin AST ALT Alkaline Phosphatase Total Creatine Kinase CK-MB (CK-2) CK-MB (CK-2) Rel Index Troponin I Total Protein Albumin Globulin Albumin/Globulin Ratio Triglycerides Cholesterol LDL Cholesterol, Calc HDL Cholesterol Lipase Urine RBC None seen Urine WBC None seen Ur Squamous Epith Cells 0-1 /hpf Urine Bacteria None seen Ur Culture Indicated? Cult not indicated Ethyl Alcohol SARS-CoV-2 (PCR) Negative Assessment & Plan Assessment & Plan narrative: This is a 35 year old male with chronic anxiety and alcoholism who presents with acute abdominal pain worsening in severity since noon yesterday. Alcoholic Pancreatitis, present on admission. Active. -CT scan confirms pancreatitis. Lipase is 1618 with a white blood count of 13.0 -also has significant elevated triglycerides of 3772 with cholesterol of 552. -he drinks 12 beers daily although he minimizes that to only 2 or 3 days a week. -He will be on bowel rest with IV fluid support and IV Dilaudid as needed. -I have discussed with him that continuing to drink alcohol will likely cause this condition to recur causing significant medical problems and that he should consider himself to have stopped drinking all alcohol as of now. Alcoholic hepatitis, present on admission. Active. -total bilirubin 2.7 with AST 78 and ALT 193 -CT shows hepatomegaly with steatohepatitis -follow CMP daily Regular alcohol use, present admission. Active. -he denies any prior episodes of alcohol withdrawal and reports that he binge drinks 2-3 days per week -use lorazepam as needed along with CIWA protocol. Hyperglycemia, present on admission. Active. -probable new diabetes mellitus of pancreatitis/pancreatic insufficiency -begin medium dose Lispro correctional scale and check A1c. -continue IV fluid support Hypertriglyceridemia, present on admission. Active. -avoiding alcohol and appropriate dietary changes will be emphasized with dietitian consultation requested. -consider triglyceride lowering therapy in addition. Alcoholism, present on admission. Active. -advised to stop drinking. He has significant alcoholic hepatitis and pancreatitis complications already -advised that his chance of minimizing future health problems depends on this very important change in his habits. Anxiety, present on admission. Chronic. -continue hydroxyzine when able to take by mouth, use IV lorazepam as needed His backup decision maker is his sister Danika Villeda for DVT prevention. Quality VTE Deep Vein Thrombosis/Pulmonary Embolism Present on Admission: No
[2020-11-17 16:14] VITALS: BP 138/85; PULSE 110; RESP 17; TEMP 36.3; O2SAT 93
--- NOTE | 2020-11-17 17:06 | PC.NURSE ---
Addendum entered by Priscilla Painting R.N. 11/17/20 18:29: Pt awake and quietly resting in bed. Reports pain left abdomen with movement. Pillow provided for splinting and dilaudid administered. Pt denies any feelings of anxiety. Original Note: Pt mostly sleeping in bed @ change of shift and into evening shift. Rouses easily to voice and scd's BL placed as ordered. Pt NPO but given oral swabs. Pt has wallet and keys on bedside table and declines to secure in safe. These items along with clothing, also placed on bedside table, placed in patient belonging bag in front of patient and placed on recliner. Pt denies pain, denies nausea, but reports increase in abdominal pain with position changes. Denies need for pain meds @ this time. Seizure pads in place. No signs of withdrawal noted.
[2020-11-17] MEDS: HYDROMORPHONE 0.5 MG INJ IV ×2 (18:24→23:22)
[2020-11-17 18:25] LABS: Hemoglobin A1C% w Est Avg Glu 11.9 % (4.0-6.0)
[2020-11-17] MEDS: FAMOTIDINE 20 MG/2 ML VIAL IV (20:16)
[2020-11-17 20:19] VITALS: BP 139/82; PULSE 109; RESP 16; TEMP 36.5; O2SAT 94
[2020-11-17] MEDS: INSULIN LISPRO 100 UNIT/ML 3ML VIAL SUBCUT (20:32)
[2020-11-17] MEDS: chlordiazePOXIDE 25 MG CAPSULE PO (21:30)
[2020-11-17 23:15] VITALS: BP 140/93; PULSE 124; RESP 18; TEMP 36.9; O2SAT 93
--- NOTE | 2020-11-17 23:45 | PC.NURSE ---
Addendum entered by Priscilla Painting R.N. 11/18/20 02:29: Bolus completed and pt requests to go into bathroom to void. Voided 1000 cc's lucia colored urine. To sink to rinse mouth with this sba underwriter observing and back into bed. Prefers to have scd's off as are disruptive to sleep. Addendum entered by Priscilla Painting R.N. 11/18/20 01:03: Discussed with RAMAN Valdez pt's urinary output of 100 cc's on evening shift and no void since with HR in the one teen's as high as one twenties. Hospitalist entering orders to increase iv fluid rate as well as bolus. Original Note: Minimal urinary output on evening shift. Pt denies feeling as though needs to void and cannot. Will continue to monitor for larger output. Requests oral intake and it was explained to pt that oral swabs only with sips to take oral meds. Pt acknowledges understanding. HR 125 per FITNESS CONSULTANT, Madai. Pt was medicated with 0.5 mg iv dilaudid for pain 6/10 to left side of abdomen increasing with movement. CIWA=0 at this time. BL calf scd's in place. Seizure pads in place. Pt denies nausea.
[2020-11-18] MEDS: DEXTROSE 5%-0.9% NS 1,000 ML 1000 ML IV (01:12)
[2020-11-18] MEDS: DEXTROSE 5%-0.9% NS 1,000 ML 150 ML IV (01:13)
[2020-11-18] MEDS: INSULIN GLARGINE 100 UNIT/ML 3ML PEN 40 UNIT SUBCUT (01:54)
[2020-11-18 03:02] VITALS: BP 122/81; PULSE 109; RESP 18; TEMP 36.9; O2SAT 93
[2020-11-18] MEDS: HYDROMORPHONE 0.5 MG INJ IV (04:42)
[2020-11-18 05:22] LABS: Add Manual Diff / Slide Review NO; Basophils Absolute Auto 0 /uL (0-100); Basophils Percent Auto 0.4 % (0-2); Eosinophils Absolute Auto 0 /uL (0-450); Eosinophils Percent Auto 0.4 % (2-4); Hematocrit 46.1 % (41-53); Hemoglobin 15.3 g/dL (13.5-17.5); Lymphocytes Absolute Auto 1300 /uL (1100-4500); Lymphocytes Percent Auto 12.4 % (25-40); Mean Corpuscular HGB Conc 33.1 % (30-36); Mean Corpuscular Hemoglobin 30.2 PG (26-34); Mean Corpuscular Volume 91.4 fL (80-100); Monocytes Absolute Auto 1100 /uL (0-900); Monocytes Percent Auto 10.4 % (3-14); Neutrophils Absolute Auto 8100 /uL (1500-7000); Neutrophils Percent Auto 76.4 % (50-75); Platelet Count 186 X10^3/uL (150-400); Red Blood Cell Count 5.05 X10^6/uL (4.5-5.9); Red Cell Distribution Width 13.3 % (11.6-14.8); White Blood Cell Count 10.6 X10^3/uL (4.5-11.0)
[2020-11-18 05:25] LABS: Lipase 854 U/L (23-300)
[2020-11-18 05:26] LABS: Bilirubin Total 2.2 mg/dL (0.2-1.3); Chloride 110 mmol/L (98-107); Potassium 4.1 mmol/L (3.4-5.1)
[2020-11-18] MEDS: chlordiazePOXIDE 25 MG CAPSULE PO ×2 (05:40→15:31)
[2020-11-18 05:42] LABS: Alanine Aminotransferase 102 IU/L (<50); Albumin 3.9 g/dL (3.5-5.0); Albumin Globulin Ratio 1.1 (1.0-2.8); Alkaline Phosphatase 98 U/L (38-126); Aspartate Aminotransferase 36 IU/L (17-59); BUN Creatinine Ratio 11.6 (6-22); Blood Urea Nitrogen 8 mg/dL (9-20); Calcium 7.8 mg/dL (8.4-10.2); Carbon Dioxide 15 mmol/L (22-32); Estimated Glomerular Filt Rate > 60.0 mL/min (>60); Globulin 3.4 g/dL (1.7-4.1); Glucose 327 mg/dL (70-100); HEMOLYSIS < 15 (0-50); Magnesium 2.1 mg/dL (1.6-2.3); Sodium 140 mmol/L (137-145); Total Protein 7.3 g/dL (6.3-8.2)
[2020-11-18 05:52] LABS: Ketones (Beta-Hydroxybutyrate) 3.74 mmol/L (<0.27)
[2020-11-18 06:14] LABS: HCO3 VBG 18 mmol/L (23-28); Oxygen Saturation VBG 69 % (70-75); PCO2 VBG 35.2 mmHg (45-50); PO2 VBG 39 mmHg (35-45); Total CO2 VBG 19 mmol/L (24-29); pH VBG 7.32 (7.33-7.43)
[2020-11-18 06:22] LABS: Triglycerides 1450 mg/dL (35-150)
[2020-11-18 06:25] LABS: Lactate (Lactic Acid) 1.4 mmol/L (0.7-2.1)
[2020-11-18] MEDS: INSULIN DRIP PREMIX 100 UNIT/100 ML PLAST..BAG 6 UNIT IV (06:59)
[2020-11-18 08:00] VITALS: BP 137/97; PULSE 113; RESP 19; TEMP 36.9; O2SAT 91
[2020-11-18] MEDS: INSULIN LISPRO 100 UNIT/ML 3ML VIAL SUBCUT ×3 (10:28→17:16)
[2020-11-18] MEDS: INSULIN GLARGINE 100 UNIT/ML 3ML PEN 20 UNIT SUBCUT (10:30)
[2020-11-18] MEDS: HYDROMORPHONE 1 MG INJ IV (10:40)
[2020-11-18 11:20] VITALS: BP 131/85; PULSE 127; RESP 19; TEMP 36.4; O2SAT 93
--- NOTE | 2020-11-18 13:35 | DIET.PN ---
Addendum entered by Amanda Perkins 11/18/20 14:01: Recc pt get referral from PCP once established for DSME outpatient diabetes education at [facility] Original Note: Dietary Progress Note Assessment: 35y M admitted for acute pancreatitis found to have hepatomegaly and hepatic steatosis c new dx Diabetes Mellitus referred to dietitian for diabetic nutrition teaching. Pt reports recently having a birthday which led to overconsuming beer while he took time off from work and then from the time between he got off work and went to bed averaging 12 Modelos daily x2w. Pt has been following Intermittent Fasting for the past 3 months with an eating window of noon-6pm. Pt can continue IF eating pattern as desired for weight loss (BMI 33) as long as insulin schedule takes this into account. Encouraged pt to consider less severe 13h daily fasting. Usual Day: no breakfast noon: chicken c rice or ramen, or tacos, water gets off work and goes to bar with friend- has 5-6 Modelo beers and appetizer of fried onion rings with [place] dressing goes home and continues drinking another 5-6 Modelo beers 6pm: ribeye steak c 1/2 avocado or [employer] hamburger or something else he can cook really quick Beverages: water and 1 Bang energy drink or 1 sugar free Monster energy drink Pt feels his beer habit biggest factor in new dx as he states he doesn't like eating much sugar or dessert in general. Pt likes rice and noodles. Pt motivated to quit drinking for a while and have more controlled moderate intake in the future as he is influenced by this hospitalization and pain. Pt enjoys a variety of vegetables including onions, garlic, many others but feels cooking for just himself is a barrier to purchasing and regularly consuming them. HT: 167.6cm WT: 93.2kg BMI: 33.2 Labs: A1c 11.9 H, elevated AST/ALT, TG 3772 H, TC 552 H, lipase on admit 1618, urine ketones on admit 3.74 Nutrition Diagnosis:altered nutrition related laboratory values (blood lipids, blood sugar) r/t endocrine dysfunction and undesirable food choices aeb A1c 11.9, TG 3772, TC 552, lipase 1618, urine ketones 3.74, pt consuming 12 beers daily, high intake refined grains, high intake saturated fat foods. Interventions: 1. Discussed new DM dx: A1c, BG, ways to get numbers in good control including medication management, consistent carbohydrate intake, physical activity. 2. To support new dx DM2, using packet, educated pt on carb counting and balanced plate. Reviewed usual daily intake and collaborated c pt on ways to modify current menu for better glycemic control. Including controlling amount of rice/pasta c lunch, increasing protein portion and adding non-starchy veg if still hungry, reducing or removing beer intake, increasing non-starchy veg intake at dinner. 3. To support reducing elevated blood lipids encouraged pt to limit saturated fat intake from animal sources and increase dietary fiber especially soluble fiber. Encouraged pt to stick to chicken, lean pork, turkey, and fish for protein, if eating red meat, occasional sirloin okay. Problem solved c pt ways to increase vegetable intake including grilling them when grilling meat, changing pub fare of onion rings/[place] island for baked chicken wings c carrot and celery or other non-fried appetizer with vegetable. Encouraged increased intake onion/garlic for liver support as pt enjoys these foods. Diet Order: CCD3/4, encourage high intake soluble fiber 35g daily EER: 35g fiber daily Monitoring/Evaluations: f/u teaching as requested
--- NOTE | 2020-11-18 13:51 | PC.NURSE ---
PT SLEPT WELL UNTIL ABOUT 07 WHEN WE TRANSFERRED TO ICU FOR INSULIN GTT DUE TO HIS ELEVATED CHOLESTEROL- HE WAS ON GTT AT 6/H FOR APPROX 2 H- NOW IS SALINE LOCKED AND TAKING A CARB CONTROL DIET AND USING INSULIN- PLAN WILL BE TO TEACH DIABETIC CARE TO THIS PT AND HE IS INTERESTED AND SOMEWHAT FAMILIAR WITH DIABETIC MATERIAL- HE FREQUENTLY IS TACHYCARDIC BUT REMAINS IN SINUS AND SELF LIMITING. LONG DIETARY CONFERENCE WITH MARITIME GUARD- TOLERATING DIET WELL NO NAUSEA BUT DOES C/O INTERMITTENT ABD DISCOMFORT
--- NOTE | 2020-11-18 15:57 | CM.DANOTE ---
DCP ASSESSMENT: Patient is a 35 year-old male admitted for alcoholic pancreatitis, alcoholic hepatitis and new diagnosis of diabetes. He does not have an established PCP. Primary payer [facility] & self-pay. MANNY Student met with patient at bedside this date he is alert and oriented. Educated patient on role of social work in discharge planning. Patient works at [employer] and attends school fulltime. Patient endorses drinking on average 12 beers per day. He reported he stopped drinking (cold turkey) one time approximately two years ago for about six months. Educated patient about various recovery resources. Patient not interested in an in-patient treatment at this time because, of his school/work schedule. He was open to outpatient services. Patient does not have a PCP at this time he expressed an understanding of the need to follow-up with a PCP with the new diagnosis of diabetes. Patient anticipates D/C home when medically stable he plans to drive his own car. Patient?s sister Danika Skinner is his emergency contact . Provided patient with the following resources, name number: ---Recovery resources: [facility], [facility], [facility] and resources for [place] and [place] (in person and virtual). ---PCP resources: [facility] and [facility] . Patient is aware he will have to call to make an appointment to establish care. PLAN: Anticipate D/C home when medically stable. CM Team to continue to follow. Strongly encouraged patient to establish a PCP and seek recovery assistance for alcohol abuse. MANNY Suazo MSW Student Discharge Planning/Care Management CM Discharge Assessment Start: 11/18/20 14:16 Freq: Status: Active Protocol: Document 11/18/20 14:16 AL (Rec: 11/18/20 14:19 AL [id number]) Discharge Planning Assessment Assigned Fish Skinning Machine Feeder MANNY Anton Student Contact Information Danika Skinner Advance Directives? No History Provided By Patient,Medical Record Has Patient been admitted in last 30 No days? Prior Living Arrangements House Type of transporation used prior to Drives own vehicle admit Independent with ADL's Yes Is patient alert and oriented? Yes Caregiver for Another No Barriers to Discharge No Discharge Plan Home Transportation Arrangement Patient stated he will drive himself at time of D/C Additional Comment Provided family practice information to patient so he can call and establish a PCP Whiteboard Updated in Patient Room with Yes name and ext. # of Fish Skinning Machine Feeder Review Status In Process
[2020-11-18 16:00] VITALS: BP 123/87; PULSE 125; RESP 16; TEMP 37.3; O2SAT 93
--- NOTE | 2020-11-18 17:45 | PC.NURSE ---
Yung is discharged to home with his brother to transport. D/c instructions are reviewed and questions answered. PIV is d/c'd, tip intact. Yung is escorted to private car via w/c to ride home with brother.
[2020-11-19 13:44] LABS: Osmolality, Serum 308 mOsmol/kg (275-295)
== END 2020-11-18 17:45 | disposition home or self-care (01) | DRG 440 ==
LOC: ED 11:05 → AC 11:49 → ICU 11-18 10:54
PROVIDERS: Nurse Practitioner Family; Admitting Provider Family Medicine; Emergency Provider Emergency Medicine; Referring Provider Emergency Medicine; Visit Provider Family Medicine
DX: K85.20 Alcohol induced acute pancreatitis without necrosis or infection (principal); K70.10 Alcoholic hepatitis without ascites; F10.20 Alcohol dependence, uncomplicated; Y90.0 Blood alcohol level of less than 20 mg/100 ml; R73.9 Hyperglycemia, unspecified; E78.1 Pure hyperglyceridemia; F41.9 Anxiety disorder, unspecified; Z20.822 Contact with and (suspected) exposure to COVID-19
CPT/HCPCS: 36415; 74177; 80053; 80061; 80320; 81003; 81015; 82009; 82550; 82553; 82805; 82962; 83036; 83605; 83690; 83735; 83930; 84478; 84484; 85025; 87635; 87797; 93005; 96361; 96374; 99284; C9803; J1170; J1815; J1885; Q9967

== ENCOUNTER → 2021-02-27 14:42 | Outpatient (CLI) | payer OTHER, SELFPAY ==
[2021-02-27 15:54] LABS: COVID19 -Nasal RAPID POSITIVE (Negative)
[2021-02-27 16:00] LABS: Influenza A - CEPHEID Flu A NEGATIVE (NEGATIVE)
[2021-02-27 16:01] LABS: Influenza B - CEPHEID Flu B NEGATIVE (NEGATIVE)
== END ==
PROVIDERS: PCP Family Medicine; Visit Provider Nurse Practitioner Family
DX: U07.1 COVID-19 (principal)
CPT/HCPCS: 87502; 87635